=== PATIENT | male | born 1970 | race Two or more races ===

== ENCOUNTER 2025-05-24 11:01 | Inpatient (IN) | payer MEDICAID ==
[~2025-05-24] VITALS: Ht 181.6 cm; Wt 112.9 kg
[2025-05-24 16:20] VITALS: BP 145/98; PULSE 91; RESP 16; TEMP 98.2; O2SAT 95
[2025-05-24] MEDS ORDERED: ACETAMINOPHEN 325 MG TABLET PO PRN (18:00)
[2025-05-24] MEDS ORDERED: BENZOCAINE/MENTHOL [CEPACOL] LOZENGE PO PRN (18:00)
[2025-05-24] MEDS ORDERED: LOPERAMIDE HCL 2 MG CAPSULE PO PRN (18:00)
[2025-05-24] MEDS ORDERED: DOCUSATE SODIUM 100 MG CAPSULE PO PRN (18:00)
[2025-05-24] MEDS ORDERED: PETROLATUM,WHITE 28 GM JELLY TP PRN (18:00)
[2025-05-24] MEDS ORDERED: ALBUTEROL SULFATE HFA 90 MCG/PUFF 8 GM INHALER IH PRN (18:00)
[2025-05-24] MEDS ORDERED: BACITRACIN 28 GM OINTMENT TP PRN (18:00)
[2025-05-24] MEDS ORDERED: OMEPRAZOLE 20 MG CAPSULE PO PRN (18:00)
[2025-05-24] MEDS ORDERED: ONDANSETRON 4 MG TABLET PO PRN (18:00)
[2025-05-24] MEDS ORDERED: MAGNESIUM HYDROXIDE SUSPENSION 30 ML UDCUP PO PRN (18:00)
[2025-05-24 20:17] VITALS: BP 123/80; PULSE 89; RESP 19; TEMP 98; O2SAT 99
[2025-05-24] MEDS: ATORVASTATIN CALCIUM 40 MG TABLET PO SCH (21:09)
[2025-05-24] MEDS: ZOLPIDEM TARTRATE 10 MG TABLET PO PRN (21:32)
[2025-05-24] MEDS: CYCLOBENZAPRINE HCL 10 MG TABLET PO PRN (21:32)
[2025-05-25 08:35] VITALS: BP 144/95; PULSE 89; RESP 17; TEMP 97.2; O2SAT 95
[2025-05-25] MEDS: LOSARTAN POTASSIUM 50 MG TABLET PO SCH (09:36)
[2025-05-25] MEDS: HYDROCORTISONE 1% 30 GM OINTMENT TP SCH (09:37)
[2025-05-25] MEDS: BUMETANIDE 1 MG TABLET PO SCH (09:38)
[2025-05-25 20:21] VITALS: BP 142/82; PULSE 86; RESP 18; TEMP 97.8; O2SAT 98
[2025-05-26 08:42] VITALS: BP 118/92; PULSE 86; RESP 17; TEMP 97.6; O2SAT 96
[2025-05-26] MEDS: IBUPROFEN 600 MG TABLET PO PRN (14:05)
[2025-05-26 21:33] VITALS: BP 110/83; PULSE 101; RESP 17; O2SAT 97
[2025-05-26 22:06] VITALS: BP 110/83; PULSE 67; RESP 17; TEMP 98; O2SAT 97
[2025-05-27] MEDS: MAG HYDROX/ALUMINUM HYD/SIMETH ES 30 ML SUSPENSION UDCUP PO PRN (06:43)
[2025-05-27 08:16] VITALS: BP 112/88; PULSE 94; RESP 18; TEMP 97.8; O2SAT 97
[2025-05-27 09:27] LABS: PLATELET COUNT (AUTO) 365 K/uL (150-450); RED BLOOD CELL COUNT(AUTO) 5.73 MIL/uL (4.50-5.90); RED CELL DISTRIBUTION WIDTH 15.3 % (11.5-14.5); WHITE BLOOD COUNT (AUTO) 6.5 K/uL (4.5-11.0)
[2025-05-27 09:58] LABS: ASPARTATE AMINOTRANSFERASE 25 U/L (15-37); CALCIUM, TOTAL 9.1 mg/dL (8.8-10.5); CHOL/HDL RATIO 2.4 (4.2-7.3); CREATININE 0.80 mg/dL (0.60-1.30); GLOMERULAR FILTR. RATE CALC > 60 mL/min (>60); GLUCOSE,RANDOM 171 mg/dL (70-110); LDL CHOL (CALC.) 16 mg/dL (0-130); SODIUM SERUM 140 mmol/L (136-145); TOTAL PROTEIN, SERUM 6.7 g/dL (6.4-8.2); UREA NITROGEN, BLOOD 20 mg/dL (7-18)
[2025-05-27 20:22] VITALS: BP 101/72; PULSE 99; RESP 18; TEMP 97.8; O2SAT 100
[2025-05-28 09:00] VITALS: BP 116/85; PULSE 91; RESP 16; TEMP 97.5; O2SAT 97
[2025-05-28 20:13] VITALS: BP 124/64; PULSE 95; RESP 17; TEMP 98.4; O2SAT 96
[2025-05-29 08:16] VITALS: BP 126/79; PULSE 88; RESP 19; TEMP 98; O2SAT 98
[2025-05-29] MEDS ORDERED: BUME1TAB50 PO (08:20)
[2025-05-29] MEDS ORDERED: HYDR30CR39 TP (08:21)
[2025-05-29] MEDS ORDERED: LOSA-382 PO (08:21)
[2025-05-29] MEDS ORDERED: ATOR40TA28 PO (08:23)
[2025-05-29] MEDS ORDERED: METF-1211 PO (08:23)
[2025-05-29] MEDS ORDERED: HALO5TAB23 PO (10:34)
== END 2025-05-29 16:31 | disposition home or self-care (01) | DRG 761 ==
LOC: B2S 16:05
PROVIDERS: ADMIT Psychiatry & Neurology Psychiatry; ATTEND Psychiatry & Neurology Psychiatry
DX: F25.9 Schizoaffective disorder, unspecified (principal); E11.9 Type 2 diabetes mellitus without complications; E66.9 Obesity, unspecified; E78.5 Hyperlipidemia, unspecified; F41.9 Anxiety disorder, unspecified; G47.00 Insomnia, unspecified; I10 Essential (primary) hypertension; F32.A Depression, unspecified; J44.9 Chronic obstructive pulmonary disease, unspecified; K59.00 Constipation, unspecified; Z87.891 Personal history of nicotine dependence; Z68.34 Body mass index [BMI] 34.0-34.9, adult
CPT/HCPCS: 80053; 80061; 83036; 84436; 84439; 85025